=== PATIENT | female | born 1990 | race African-American/Black ===

== ENCOUNTER 2018-10-28 15:14 | Emergency (ER) | payer OTHER ==
--- NOTE | 2018-10-28 15:39 | RAD ---
TWO VIEWS CHEST: DATE: 10/28/2018. PROVIDED CLINICAL HISTORY: Cough. FINDINGS: Cardiac and mediastinal silhouette is within normal limits. No focal consolidation, pleural fluid, o r pneumothorax apparent. IMPRESSION: No evidence for an acute cardiopulmonary process. POS: LEANDROH
== END 2018-10-28 15:49 | disposition home or self-care (01) ==
LOC: SCSER 15:14
DX: R07.9 Chest pain, unspecified (principal); R05 Cough
CPT/HCPCS: 71046; 93005

== ENCOUNTER 2018-12-31 20:10 | Emergency (ER) | payer OTHER ==
[2018-12-31] MEDS ORDERED: Metoclopramide HCl 10 MG/2 ML VIAL ONE (20:38)
[2018-12-31] MEDS ORDERED: diphenhydrAMINE 50 MG/ML VIAL ONE (20:38)
--- NOTE | 2018-12-31 21:18 | CT ---
CT brain. HISTORY: Headache. Noncontrast enhanced CT images of the brain obtained. CT images brain demonstrate no evidence of acute intracranial hemorrhages or strokes. There is a right-sided 5.5 x 10.0 mm hypodense area in the right medial temporal lobe. This may repre sent a possible choroidal fissure cyst or cystic lesion. Correlation with elective MRI of brain with and without contrast to further characterize. IMPRESSION: possible right temporal lobe cystic lesion. Further workup using elective MRI with and wi thout contrast recommended.
[2018-12-31 21:19] LABS: BHCG - Serum Negative (NEGATIVE); Pregs Control Background? CLEAR/WHITE (CLR/WHITE); Pregs Control Bar Appear? YES (CONTROL BAR)
--- NOTE | 2018-12-31 21:20 | RAD ---
PA view chest. History: Headache. Chest pain. PA radiographic chest obtained. The lungs are well aerated. No evidence of acute intrathoracic abnorm ality seen. No evidence of effusions, pneumonia or pneumothorax seen. IMPRESSION: unremarkable AP view chest.
[2018-12-31 21:23] LABS: Band 3 % (5-11); Eosinophils 4 % (0-10); Hemoglobin 10.4 g/dL (12.0-16.0); Lymphocytes 34 % (21-51); MDiff Complete? YES; Mean Corpuscular HGB CONC 32.9 g/dL (32.0-36.0); Mean Corpuscular Hemoglobin 27.5 pg (27.0-31.0); Mean Corpuscular Volume 83.6 fL (78.0-98.0); Mean Platelet Volume 6.1 fL (7.4-10.4); Monocytes 6 % (0-10); Neutrophil 53 % (42-75); Platelet Count 334 thou/uL (130-400); Platelet Morphology Comment Appears Adequate; RBC Distribution Width 15.4 % (11.5-14.5); Red Blood Cell (RBC) Count 3.77 mill/uL (4.20-5.40); White Blood Cell (WBC) Count 8.1 thou/uL (4.8-10.8)
[2018-12-31 21:25] LABS: ALT (SGPT) 22 U/L (8-55); AST (SGOT) 18 U/L (5-34); Alkaline Phosphatase 75 U/L (40-150); Anion Gap 14 mmol/L (10-20); BUN (Urea Nitrogen) 10 mg/dL (7.0-18.7); Bilirubin, Total 0.3 mg/dL (0.2-1.2); Calc. Creatinine Clearance 0 mL/min (70-130); Calcium 9.2 mg/dL (7.8-10.44); Carbon Dioxide 22 mmol/L (22-29); Chloride 109 mmol/L (98-107); Estimated GFR-MDRD Greater than 90; Globulin 4.1 g/dL (2.4-3.5); Glucose 89 mg/dL (70-105); Potassium 3.5 mmol/L (3.5-5.1); Protein, Total 8.1 g/dL (6.0-8.3); Sodium 141 mmol/L (136-145)
[2018-12-31] MEDS ORDERED: Ketorolac Tromethamine 30 MG/ML VIAL ONE (21:43)
== END 2018-12-31 22:35 | disposition home or self-care (01) ==
LOC: SCSER 20:10
DX: R51 Headache (principal)
CPT/HCPCS: 70450; 71045; 80053; 84484; 84703; 85025; 93005; 96365; 96375; J1200; J1885; J2765